=== PATIENT | male | born 1990 | race Caucasian/White ===

== ENCOUNTER 2021-06-24 21:47 | Emergency (ER) | payer OTHER ==
[2021-06-24] MEDS ORDERED: CYCLOBENZAPRINE10 MG PO (23:48)
[2021-06-24] MEDS ORDERED: NAPROSYN500 MG PO (23:48)
== END 2021-06-25 | disposition home or self-care (01) ==
LOC: ER1 21:47
DX: S16.1XXA Strain of muscle, fascia and tendon at neck level, initial encounter (principal); S80.01XA Contusion of right knee, initial encounter; I10 Essential (primary) hypertension; V49.40XA Driver injured in collision with unspecified motor vehicles in traffic accident, initial encounter; Y92.410 Unspecified street and highway as the place of occurrence of the external cause
CPT/HCPCS: 72125; 73564; 99284